=== PATIENT | female | born 1985 | race Two or more races ===

== ENCOUNTER 2018-01-15 13:20 | Emergency (ER) | payer OTHER ==
[2018-01-15 14:42] LABS: URINE HCG POC HCG POSITIVE (Negative)
[2018-01-15 14:55] LABS: BILIRUBIN,URINE NEGATIVE (NEG); CLARITY,URINE CLEAR; COLOR,URINE YELLOW; GLUCOSE,URINE NEGATIVE (NEG); NITRITE,URINE NEGATIVE (NEG); PH,URINE 5.5; PROTEIN,URINE NEGATIVE (NEG-TRACE); UROBILINOGEN,URINE 0.2 mg/dL (0.2 mg/dL)
[2018-01-15 15:02] LABS: BACTERIA,URINE MANY /HPF (0-FEW); RBC,URINE OCC /HPF (0-2); SQUAMOUS EPITHELIAL CELL,UR MANY /LPF
== END 2018-01-15 16:24 | disposition home or self-care (01) ==
LOC: ER 13:20
DX: O20.0 Threatened abortion (principal); O23.41 Unspecified infection of urinary tract in pregnancy, first trimester; O16.1 Unspecified maternal hypertension, first trimester; Z3A.12 12 weeks gestation of pregnancy
CPT/HCPCS: 76801; 81001; 81025; 87086; 99285-25

== ENCOUNTER → 2018-03-10 | Outpatient (CLI) | payer OTHER | END | disposition home or self-care (01) | LOC: US 15:30 | DX: O26.842 Uterine size-date discrepancy, second trimester (principal); Z3A.20 20 weeks gestation of pregnancy | CPT/HCPCS: 76805 ==

== ENCOUNTER → 2018-06-15 | Outpatient (CLI) | payer OTHER | END | disposition home or self-care (01) | LOC: KCIC US 10:36 | DX: Z34.83 Encounter for supervision of other normal pregnancy, third trimester (principal); Z3A.33 33 weeks gestation of pregnancy | CPT/HCPCS: 76805; 76817 ==